=== PATIENT | female | born 1995 | race American Indian/Alaskan Native ===

== ENCOUNTER 2021-05-20 09:46 | Emergency (ER) | payer MEDICAID ==
[2021-05-20 10:07] VITALS: BP 147/90
[2021-05-20] MEDS ORDERED: IBUPROFEN 800 MG TAB PO ONE (10:17)
--- NOTE | 2021-05-20 10:21 | Emergency Department Report ---
ED ENT HPI - General Chief complaint: Earache Stated complaint: RT EAR PAIN Time Seen by Provider: 05/20/21 10:13 Source: patient Mode of arrival: Ambulatory Limitations: No Limitations - History of Present Illness Initial comments: 25-year-old female presents to the ER today with complaints of right ear pain. She states that her pain started yesterday after her ears popped. She states that she has had a cold for the past couple days. She denies any drainage or bleeding from the ear. She reports no fever or chills. She reports no prior ear surgery, or infection in the past. MD complaint: ear pain -: Gradual, days(s) (1) Location: R ear Severity: moderate - Related Data Previous Rx's Medication Instructions Recorded Last Taken Type Amoxicillin/Potassium Clav 1 each PO BID #14 tablet 05/20/21 Unknown Rx [Augmentin 875-125 Tablet] Fluticasone [Flonase] 2 spray NS QDAY #1 bottle 05/20/21 Unknown Rx Ibuprofen [Motrin] 800 mg PO Q8HR PRN #30 tablet 05/20/21 Unknown Rx Loratadine [Claritin] 10 mg PO DAILY #20 tablet 05/20/21 Unknown Rx Allergies Allergy/AdvReac Type Severity Reaction Status Date / Time No Known Allergies Allergy Unverified 05/20/21 10:05 ED Dental HPI - General Chief complaint: Earache Stated complaint: RT EAR PAIN Time Seen by Provider: 05/20/21 10:13 Source: patient Mode of arrival: Ambulatory Limitations: No Limitations - Related Data Previous Rx's Medication Instructions Recorded Last Taken Type Amoxicillin/Potassium Clav 1 each PO BID #14 tablet 05/20/21 Unknown Rx [Augmentin 875-125 Tablet] Fluticasone [Flonase] 2 spray NS QDAY #1 bottle 05/20/21 Unknown Rx Ibuprofen [Motrin] 800 mg PO Q8HR PRN #30 tablet 05/20/21 Unknown Rx Loratadine [Claritin] 10 mg PO DAILY #20 tablet 05/20/21 Unknown Rx Allergies Allergy/AdvReac Type Severity Reaction Status Date / Time No Known Allergies Allergy Unverified 05/20/21 10:05 ED Review of Systems ROS: Stated complaint: RT EAR PAIN Other details as noted in HPI Comment: All other systems reviewed and negative Constitutional: denies: chills, fever Eyes: denies: eye pain, eye discharge, vision change ENT: ear pain, congestion, other (rhinorrhea) Gastrointestinal: denies: abdominal pain, nausea, diarrhea, constipation, hematemesis, melena, hematochezia Genitourinary: denies: urgency, dysuria, discharge Musculoskeletal: denies: back pain, joint swelling, arthralgia Neurological: denies: headache, weakness, numbness, paresthesias, confusion, abnormal gait, vertigo Psychiatric: denies: anxiety, depression, auditory hallucinations, visual hallucinations, homicidal thoughts, suicidal thoughts Hematological/Lymphatic: denies: easy bleeding, easy bruising, swollen glands ED Past Medical Hx - Past Medical History Previous Medical History?: No - Surgical History Past Surgical History?: No - Social History Smoking Status: Never Smoker Substance Use Type: Alcohol - Medications Home Medications: Home Medications Medication Instructions Recorded Confirmed Last Taken Type Amoxicillin/Potassium Clav 1 each PO BID #14 tablet 05/20/21 Unknown Rx [Augmentin 875-125 Tablet] Fluticasone [Flonase] 2 spray NS QDAY #1 bottle 05/20/21 Unknown Rx Ibuprofen [Motrin] 800 mg PO Q8HR PRN #30 tablet 05/20/21 Unknown Rx Loratadine [Claritin] 10 mg PO DAILY #20 tablet 05/20/21 Unknown Rx ED Physical Exam - General Limitations: No Limitations General appearance: alert, in no apparent distress - Head Head exam: Present: atraumatic, normocephalic, normal inspection - Eye Eye exam: Present: normal appearance, PERRL, EOMI Pupils: Present: normal accommodation - Expanded ENT Exam Expanded TM/Canal exam: Erythema: Right TM, Bulging: Right TM, Effusion: Right TM (large, thick yellow effusion noted) Mouth exam: Present: normal external inspection Throat exam: Positive: normal inspection - Neck Neck exam: Present: normal inspection, full ROM. Absent: meningismus - Respiratory Respiratory exam: Absent: respiratory distress - Cardiovascular Cardiovascular Exam: Present: regular rate - Neurological Exam Neurological exam: Present: alert, oriented X3, CN II-XII intact, normal gait - Skin Skin exam: Present: intact ED Course Vital Signs 05/20/21 10:05 Temperature 99.0 F Pulse Rate 78 Respiratory 20 Rate Blood Pressure 147/90 O2 Sat by Pulse 97 Oximetry Critical care attestation.: If time is entered above; I have spent that time in minutes in the direct care of this critically ill patient, excluding procedure time. ED Disposition Clinical Impression: Otitis media Disposition: DC- TO HOME OR SELFCARE Is pt being admited?: No Does the pt Need Aspirin: No Condition: Stable Instructions: Otitis Media, Adult, [id number] Additional Instructions: I recommend that you take the Augmentin, the Claritin and ibuprofen and use the Flonase as prescribed. Follow-up closely with your primary care doctor and or distance learning program coordinator if your symptoms not improving.. Return to the ER if your symptoms changes or worsens in any way. Prescriptions: Amoxicillin/Potassium Clav [Augmentin 875-125 Tablet] 1 each PO BID #14 tablet Loratadine [Claritin] 10 mg PO DAILY #20 tablet Fluticasone [Flonase] 2 spray NS QDAY #1 bottle Ibuprofen [Motrin] 800 mg PO Q8HR PRN #30 tablet PRN Reason: Pain Referrals: WADE MOREAU MD [Staff Physician] - 7-10 days (Primary care physician) TAHMINA ASENCIO MD [Staff Physician] - 7-10 days (disability benefits specialist) Time of Disposition: 10:23
== END 2021-05-20 10:43 | disposition home or self-care (01) ==
LOC: ED 09:46
DX: H66.91 Otitis media, unspecified, right ear (principal); Z72.89 Other problems related to lifestyle; Z79.899 Other long term (current) drug therapy
CPT/HCPCS: 99282